=== PATIENT | male | born 1965 | race Caucasian/White ===

== ENCOUNTER 2021-02-19 20:26 | Emergency (ER) | payer MEDICAID ==
[~2021-02-19] VITALS: Ht 172.7 cm; Wt 77.1 kg
[2021-02-19] MEDS ORDERED: IV NORMAL SALINE 1000 ML BAG IV ONE (21:00)
[2021-02-19 21:40] LABS: HEMATOCRIT 38.7 % (36.7-47.1); MEAN CORPUSCULAR HEMOGLOBIN 29.5 uug (23.8-33.4); PLATELET COUNT (AUTO) 395 K/uL (152-348)
[2021-02-19 21:45] LABS: CREATININE 0.8 mg/dL (0.6-1.3); POTASSIUM 3.7 mmol/L (3.5-5.1)
[2021-02-19] MEDS ORDERED: TRANEXAMIC ACID 1,000 MG/10 ML VIAL IR PRN (23:15)
[2021-02-20 00:56] LABS: HEMATOCRIT 36.2 % (36.7-47.1)
--- NOTE | 2021-02-20 01:15 | NUR ---
IV removed. Catheter intact and site benign. Pressure and 4x4 gauze applied to site. No bleeding noted.
[2021-02-20 01:18] VITALS: BP 141/93
--- NOTE | 2021-02-20 01:18 | NUR ---
Patient discharged to home in stable condition. Written and verbal after care instructions given. Patient verbalizes understanding of instructions. Stressed follow up or return to ER for worsening s/s.
== END 2021-02-20 01:19 | disposition home or self-care (01) ==
LOC: ER 20:35
DX: K91.841 Postprocedural hemorrhage of a digestive system organ or structure following other procedure (principal); Z90.81 Acquired absence of spleen; Z82.49 Family history of ischemic heart disease and other diseases of the circulatory system; R03.0 Elevated blood-pressure reading, without diagnosis of hypertension
CPT/HCPCS: 36415; 85018; 85025; 85730; 86850; 86900; 86901; J7030

== ENCOUNTER 2021-04-10 15:31 | Emergency (ER) | payer MEDICAID ==
[~2021-04-10] VITALS: Ht 177.8 cm; Wt 74.8 kg
[2021-04-10] MEDS ORDERED: IBUPROFEN 600 MG TABLET PO ONE (15:45)
[2021-04-10] MEDS ORDERED: IBUPROFEN 600 MG TABLET ONE (15:55)
[2021-04-10 16:01] LABS: *BILIRUBIN,URIN NEGATIVE (NEGATIVE); *BLOOD, URINE 1+ (NEGATIVE); *COLOR,URINE YELLOW (YELLOW); *KETONES,URINE NEGATIVE (NEGATIVE); *UROBILINOGEN,URINE 0.2 E.U./dl (NORMAL); LEUKOCYTE ESTERASE ,URINE NEGATIVE (NEGATIVE); NITRITE, URINE NEGATIVE (NEGATIVE); UGLUCOSE NEGATIVE (NEGATIVE)
[2021-04-10 16:09] LABS: *CLARITY,URINE HAZY (CLEAR)
[2021-04-10 16:10] LABS: BACTERIA,URINE FEW /HPF (NONE SEEN); MUCUS,URINE FEW /LPF (0-FEW); SQUAMOUS EPITHELIAL CELL,UR FEW /HPF (NONE SEEN)
[2021-04-10 16:50] LABS: *AMPHETAMINE, URINE POSITIVE (NEGATIVE); *CANNABINOID, URINE POSITIVE (NEGATIVE); *COCCAINE, URINE NEGATIVE (NEGATIVE); *OPIATE, URINE POSITIVE (NEGATIVE); *PHENCYCLIDINE SCREEN,URINE NEGATIVE (NEGATIVE)
[2021-04-10 16:57] LABS: HEMATOCRIT 37.5 % (36.7-47.1); MEAN CORPUSCULAR HEMOGLOBIN 29.5 uug (23.8-33.4); MEAN CORPUSCULAR VOLUME 87.2 fL (73.0-96.2); PLATELET COUNT (AUTO) 380 K/uL (152-348)
[2021-04-10 17:04] LABS: POTASSIUM 3.6 mmol/L (3.5-5.1)
--- NOTE | 2021-04-10 17:06 | NUR ---
Patient is resting comfortably on gurney with eyes closed, NAD.
--- NOTE | 2021-04-10 17:41 | NUR ---
Patient discharged to home in stable condition with brisk steady gait. Written and verbal after care instructions given. Patient verbalized understanding and compliance of instructions. Stressed follow up with primary doctor or return to ER for worsening s/s.
== END 2021-04-10 17:46 | disposition home or self-care (01) ==
LOC: ER 15:40
DX: R52 Pain, unspecified (principal); R31.9 Hematuria, unspecified; Z20.822 Contact with and (suspected) exposure to COVID-19; F15.10 Other stimulant abuse, uncomplicated; Z90.81 Acquired absence of spleen; I10 Essential (primary) hypertension; F17.290 Nicotine dependence, other tobacco product, uncomplicated
CPT/HCPCS: 36415; 71045; 83605; 85025; 87040; 87400; A4663

== ENCOUNTER 2021-05-02 03:00 | Emergency (ER) | payer MEDICAID ==
[~2021-05-02] VITALS: Ht 175.3 cm; Wt 77.1 kg
--- NOTE | 2021-05-02 03:32 | NUR ---
DR. LEWIS AT BEDSIDE, MSE IN PROGRESS.
[2021-05-02 03:34] LABS: *BILIRUBIN,URIN NEGATIVE (NEGATIVE); *CLARITY,URINE CLEAR (CLEAR); *COLOR,URINE YELLOW (YELLOW); *KETONES,URINE TRACE (NEGATIVE); *UROBILINOGEN,URINE 0.2 E.U./dl (NORMAL); LEUKOCYTE ESTERASE ,URINE NEGATIVE (NEGATIVE); NITRITE, URINE NEGATIVE (NEGATIVE); PH,URINE 5.5 (5.0-8.0); UGLUCOSE NEGATIVE (NEGATIVE)
[2021-05-02 03:46] LABS: *BLOOD, URINE TRACE (NEGATIVE)
[2021-05-02 03:51] LABS: BACTERIA,URINE NONE SEEN /HPF (NONE SEEN); SQUAMOUS EPITHELIAL CELL,UR FEW /HPF (NONE SEEN); WBC,URINE 0-3 /HPF (0-3)
[2021-05-02 03:53] LABS: *AMPHETAMINE, URINE POSITIVE (NEGATIVE); *CANNABINOID, URINE POSITIVE (NEGATIVE); *COCCAINE, URINE NEGATIVE (NEGATIVE); *OPIATE, URINE POSITIVE (NEGATIVE); *PHENCYCLIDINE SCREEN,URINE NEGATIVE (NEGATIVE)
--- NOTE | 2021-05-02 03:57 | NUR ---
XRAY AT BEDSIDE.
[2021-05-02 03:59] LABS: HEMATOCRIT 37.9 % (36.7-47.1); MEAN CORPUSCULAR HEMOGLOBIN 28.5 uug (23.8-33.4); MEAN CORPUSCULAR VOLUME 86.9 fL (73.0-96.2); PLATELET COUNT (AUTO) 425 K/uL (152-348)
[2021-05-02] MEDS ORDERED: KETOROLAC TROMETHAMINE 60 MG INJ IM ONE ×2 (04:00→04:09)
[2021-05-02 04:09] LABS: CREATININE 1.3 mg/dL (0.6-1.3); POTASSIUM 4.2 mmol/L (3.5-5.1)
[2021-05-02] MEDS ORDERED: VANCOMYCIN IV 1,250 MG in IV DEXTROSE 5% 250 ML IV SCH (07:00)
[2021-05-02] MEDS ORDERED: PIPERACILLIN SODIUM/TAZOBACTAM 3.375 G in IV DEXTROSE 5% 50 ML IV SCH (07:00)
--- NOTE | 2021-05-02 07:06 | NUR ---
HANDS OFF REPORT GIVEN TO MORNING SHIFT.
[2021-05-02] MEDS ORDERED: PIPERACILLIN/TAZOBACTAM/D5W 50 ML IV ONE (07:11)
--- NOTE | 2021-05-02 07:50 | NUR ---
PT DECIDED TO LEAVE HOSPITAL ER AMA. DR HERRMANN EXPLAINED TO THE PT ALL RISKS OF LEAVING HOSPITAL AMA. PT VERBALIZED FULL UNDERSTANDING. PT SIGNED AMA FORM AND LEFT HOSPITAL BY TAXI. NO S/S OF DISTRESS AT THAT TIME.
[2021-05-02 07:55] VITALS: BP 135/81
[2021-05-06] MEDS ORDERED: METO50TA16 PO (11:27)
[2021-05-06] MEDS ORDERED: AMLO-212 PO (11:27)
== END 2021-05-02 07:56 | disposition left against medical advice (07) ==
LOC: ER 03:07
DX: M25.461 Effusion, right knee (principal); Z53.29 Procedure and treatment not carried out because of patient's decision for other reasons; F15.10 Other stimulant abuse, uncomplicated; F11.10 Opioid abuse, uncomplicated; Z90.81 Acquired absence of spleen; F17.210 Nicotine dependence, cigarettes, uncomplicated; R03.0 Elevated blood-pressure reading, without diagnosis of hypertension
CPT/HCPCS: 36415; 73560; 80048; 80307; 81001; 82945; 83986; 84155; 84550; 85025; 85651; 87070; 87205; 96365; 96372; 99285; J1885; J2543; A4663

== ENCOUNTER 2021-05-02 16:32 | Inpatient (IN) | payer MEDICAID ==
[~2021-05-02] VITALS: Ht 175.3 cm; Wt 77.1 kg
[2021-05-02] MEDS ORDERED: VANCOMYCIN IV 1,000 MG in IV DEXTROSE 5% 250 ML IV ONE (17:30)
[2021-05-02] MEDS ORDERED: IV NORMAL SALINE 1000 ML BAG IV ONE (17:30)
[2021-05-02] MEDS ORDERED: PIPERACILLIN SODIUM/TAZOBACTAM 3.375 G in IV DEXTROSE 5% 50 ML IV ONE (17:30)
[2021-05-02 17:59] LABS: HEMATOCRIT 35.2 % (36.7-47.1); MEAN CORPUSCULAR VOLUME 87.2 fL (73.0-96.2); PLATELET COUNT (AUTO) 407 K/uL (152-348)
[2021-05-02 18:05] LABS: CREATININE 1.1 mg/dL (0.6-1.3); POTASSIUM 3.8 mmol/L (3.5-5.1)
[2021-05-02 18:11] LABS: BILIRUBIN,DIRECT 0.1 mg/dL (0.0-0.2); BILIRUBIN,TOTAL 0.2 mg/dL (0.2-1.0); TOTAL PROTEIN, SERUM 6.9 g/dL (6.4-8.2)
[2021-05-02] MEDS ORDERED: VANCOMYCIN IV 200 ML ONE (18:11)
[2021-05-02] MEDS ORDERED: PIPERACILLIN/TAZOBACTAM/D5W 50 ML IV ONE (18:11)
[2021-05-02 19:15] LABS: IRON, SERUM 25 ug/dL (50-175)
[2021-05-02 19:51] LABS: NEUTROPHILS % (MANUAL) 0 % (42-75)
[2021-05-02] MEDS ORDERED: ONDANSETRON 4 MG/2 ML VIAL IV PRN (21:15)
[2021-05-02] MEDS ORDERED: ACETAMINOPHEN 325 MG TABLET PO PRN (21:15)
[2021-05-02] MEDS ORDERED: HYDROCODONE/APAP 5-325MG TABLET PO PRN (21:15)
[2021-05-02 22:34] LABS: *BILIRUBIN,URIN NEGATIVE (NEGATIVE); *CLARITY,URINE CLEAR (CLEAR); *COLOR,URINE YELLOW (YELLOW); *KETONES,URINE NEGATIVE (NEGATIVE); *UROBILINOGEN,URINE 0.2 E.U./dl (NORMAL); LEUKOCYTE ESTERASE ,URINE NEGATIVE (NEGATIVE); NITRITE, URINE NEGATIVE (NEGATIVE); UGLUCOSE NEGATIVE (NEGATIVE)
[2021-05-02 22:38] LABS: *BLOOD, URINE TRACE (NEGATIVE)
[2021-05-02 22:40] LABS: BACTERIA,URINE NONE SEEN /HPF (NONE SEEN); RBC,URINE 0-3 /HPF (0-3); SQUAMOUS EPITHELIAL CELL,UR FEW /HPF (NONE SEEN); WBC,URINE 0-3 /HPF (0-3)
[2021-05-03] MEDS ORDERED: PIPERACILLIN SODIUM/TAZOBACTAM 3.375 G in IV DEXTROSE 5% 50 ML IV SCH
[2021-05-03] MEDS ORDERED: DOCUSATE SODIUM 100 MG CAPSULE PO ONE (00:32)
[2021-05-03] MEDS ORDERED: PIPERACILLIN/TAZOBACTAM/D5W 50 ML IV ONE ×2 (00:32→13:28)
[2021-05-03 06:24] LABS: HEMATOCRIT 38.3 % (36.7-47.1); MEAN CORPUSCULAR HEMOGLOBIN 28.8 uug (23.8-33.4); MEAN CORPUSCULAR VOLUME 86.5 fL (73.0-96.2); PLATELET COUNT (AUTO) 443 K/uL (152-348)
[2021-05-03 06:41] LABS: BILIRUBIN,TOTAL 0.6 mg/dL (0.2-1.0); CREATININE 0.8 mg/dL (0.6-1.3); PHOSPHOROUS 1.8 mg/dL (2.5-4.9); POTASSIUM 3.7 mmol/L (3.5-5.1); TOTAL PROTEIN, SERUM 7.3 g/dL (6.4-8.2)
[2021-05-03] MEDS: PIPERACILLIN SODIUM/TAZOBACTAM 3.375 G in IV DEXTROSE 5% 50 ML IV SCH ×3 (06:47→23:39)
[2021-05-03] MEDS: PANTOPRAZOLE SODIUM 40 MG TABLET.DR PO SCH (06:47)
[2021-05-03] MEDS ORDERED: PIPERACILLIN SODIUM/TAZO 3.375 GM VIAL ONE ×2 (06:47→23:28)
[2021-05-03] MEDS ORDERED: PANTOPRAZOLE SODIUM 40 MG TABLET.DR PO ONE (06:48)
[2021-05-03] MEDS ORDERED: VANCOMYCIN IV 1,250 MG in IV DEXTROSE 5% 250 ML IV ONE (08:00)
[2021-05-03] MEDS: ENOXAPARIN SODIUM 40 MG/0.4 ML DISP.SYRIN SQ SCH (09:09)
[2021-05-03] MEDS ORDERED: ENOXAPARIN SODIUM 40 MG/0.4 ML DISP.SYRIN SQ ONE (09:18)
[2021-05-03] MEDS ORDERED: NEUTRA PHOS PACKET PO ONE (16:00)
[2021-05-03] MEDS ORDERED: SODIUM PHOSPHATE MM 15 MMOL in IV NORMAL SALINE 250 ML IV ONE (16:00)
[2021-05-03] MEDS: IV 1/2NS 1000 ML 1,000 ML IV PRN (18:31)
[2021-05-03 20:46] VITALS: BP 154/109
[2021-05-03] MEDS: DOCUSATE SODIUM 100 MG CAPSULE PO SCH (21:00)
[2021-05-03] MEDS ORDERED: DOCUSATE SODIUM 250 MG CAPSULE PO SCH (21:00)
[2021-05-03] MEDS: VANCOMYCIN IV 1,250 MG in IV DEXTROSE 5% 250 ML IV SCH (22:17)
[2021-05-04] MEDS ORDERED: PIPERACILLIN SODIUM/TAZO 3.375 GM VIAL ONE (02:22)
[2021-05-04 04:43] VITALS: BP 161/86
[2021-05-04] MEDS: PIPERACILLIN SODIUM/TAZOBACTAM 3.375 G in IV DEXTROSE 5% 50 ML IV SCH (05:50)
[2021-05-04] MEDS: PANTOPRAZOLE SODIUM 40 MG TABLET.DR PO SCH (05:56)
[2021-05-04 07:39] LABS: CREATININE 0.8 mg/dL (0.6-1.3); PHOSPHOROUS 2.4 mg/dL (2.5-4.9); POTASSIUM 3.3 mmol/L (3.5-5.1)
[2021-05-04] MEDS: VANCOMYCIN IV 1,250 MG in IV DEXTROSE 5% 250 ML IV SCH (08:48)
[2021-05-04] MEDS: ENOXAPARIN SODIUM 40 MG/0.4 ML DISP.SYRIN SQ SCH (11:50)
[2021-05-04] MEDS: IV 1/2NS 1000 ML 1,000 ML IV PRN ×2 (11:53→23:08)
[2021-05-04 12:00] VITALS: BP 180/116
[2021-05-04] MEDS: POTASSIUM CHLORIDE 50 ML IV SCH ×2 (12:26→13:57)
[2021-05-04] MEDS ORDERED: NEUTRA PHOS PACKET PO ONE (15:30)
[2021-05-04 16:00] VITALS: BP 183/113
[2021-05-04] MEDS: LORAZEPAM 0.5 MG TABLET PO PRN (16:12)
[2021-05-04] MEDS: DOCUSATE SODIUM 100 MG CAPSULE PO SCH (20:19)
[2021-05-04 20:57] VITALS: BP 182/115
[2021-05-04] MEDS: AMLODIPINE 5 MG TABLET PO SCH (21:13)
[2021-05-04] MEDS: METOPROLOL TARTRATE 50 MG TABLET PO SCH (21:14)
[2021-05-04] MEDS: VANCOMYCIN IV 1,000 MG in IV DEXTROSE 5% 250 ML IV SCH (22:20)
[2021-05-04] MEDS: hydrALAZINE HCL 25 MG TABLET PO PRN (23:03)
[2021-05-04 23:04] VITALS: BP 181/105
[2021-05-05] MEDS: LORAZEPAM 0.5 MG TABLET PO PRN ×2 (00:20→13:44)
[2021-05-05 00:25] VITALS: BP 152/110
[2021-05-05 04:52] VITALS: BP 103/53
[2021-05-05] MEDS: VANCOMYCIN IV 1,000 MG in IV DEXTROSE 5% 250 ML IV SCH ×2 (05:44→14:01)
[2021-05-05] MEDS: PANTOPRAZOLE SODIUM 40 MG TABLET.DR PO SCH (06:07)
[2021-05-05 08:01] LABS: HEMATOCRIT 41.7 % (36.7-47.1); MEAN CORPUSCULAR HEMOGLOBIN 28.3 uug (23.8-33.4); MEAN CORPUSCULAR VOLUME 84.7 fL (73.0-96.2); PLATELET COUNT (AUTO) 511 K/uL (152-348)
[2021-05-05 08:10] LABS: CREATININE 0.8 mg/dL (0.6-1.3); MAGNESIUM 1.8 mg/dL (1.8-2.4)
[2021-05-05] MEDS: IV 1/2NS 1000 ML 1,000 ML IV PRN (12:14)
[2021-05-05 12:31] VITALS: BP 150/94
[2021-05-05] MEDS: ENOXAPARIN SODIUM 40 MG/0.4 ML DISP.SYRIN SQ SCH (13:43)
[2021-05-05] MEDS: POTASSIUM CHLORIDE 10 MEQ TAB.PRT.SR PO SCH ×2 (13:45→17:49)
[2021-05-05] MEDS: AMLODIPINE 5 MG TABLET PO SCH ×2 (13:56→21:00)
[2021-05-05] MEDS: METOPROLOL TARTRATE 50 MG TABLET PO SCH ×2 (13:58→21:01)
[2021-05-05 16:33] VITALS: BP 156/96
[2021-05-05] MEDS ORDERED: SODIUM PHOSPHATE MM 15 MMOL in IV NORMAL SALINE 250 ML IV ONE (17:00)
[2021-05-05 20:59] VITALS: BP 150/102
[2021-05-05] MEDS: DOCUSATE SODIUM 100 MG CAPSULE PO SCH (20:59)
[2021-05-06] MEDS: hydrALAZINE HCL 25 MG TABLET PO PRN (00:23)
[2021-05-06 04:20] VITALS: BP 149/96
[2021-05-06] MEDS: PANTOPRAZOLE SODIUM 40 MG TABLET.DR PO SCH (06:13)
[2021-05-06 06:56] LABS: HEMATOCRIT 43.6 % (36.7-47.1); PLATELET COUNT (AUTO) 476 K/uL (152-348)
[2021-05-06 07:17] LABS: CREATININE 0.8 mg/dL (0.6-1.3); MAGNESIUM 1.9 mg/dL (1.8-2.4); POTASSIUM 3.4 mmol/L (3.5-5.1)
[2021-05-06 08:26] VITALS: BP 151/101
[2021-05-06] MEDS: METOPROLOL TARTRATE 50 MG TABLET PO SCH (08:26)
[2021-05-06] MEDS: AMLODIPINE 5 MG TABLET PO SCH (08:26)
[2021-05-06] MEDS: ENOXAPARIN SODIUM 40 MG/0.4 ML DISP.SYRIN SQ SCH (08:27)
[2021-05-06] MEDS ORDERED: POTASSIUM CHLORIDE 20 MEQ TAB.PRT.SR PO ONE (09:30)
[2021-05-06] MEDS ORDERED: AMLO-212 PO (11:27)
[2021-05-06] MEDS ORDERED: METO50TA16 PO (11:27)
== END 2021-05-06 12:10 | disposition home or self-care (01) | DRG 351 ==
LOC: ER 16:32 → TRANSITION 21:08 → MEDSURG3 05-03 17:34
PROVIDERS: ADMIT Nurse Practitioner Family; ATTEND Nurse Practitioner Acute Care
DX: M25.461 Effusion, right knee (principal); E44.0 Moderate protein-calorie malnutrition; R78.81 Bacteremia; M25.861 Other specified joint disorders, right knee; D64.9 Anemia, unspecified; M11.20 Other chondrocalcinosis, unspecified site; Z20.822 Contact with and (suspected) exposure to COVID-19; I10 Essential (primary) hypertension; M19.90 Unspecified osteoarthritis, unspecified site; Z90.81 Acquired absence of spleen; F19.10 Other psychoactive substance abuse, uncomplicated; Z72.0 Tobacco use
CPT/HCPCS: 36415; 70030-TC; 73700; 83550; 83605; 83735; 84100; 84550; 85025; 85730; 87040; 87086; A4663; G0378; J1650; J2543; J3370; J3480; J3490; J7030; J7040; J7050; J7060

== ENCOUNTER 2021-06-13 04:07 | Emergency (ER) | payer MEDICAID ==
[~2021-06-13] VITALS: Ht 177.8 cm; Wt 77.1 kg
[~2021-06-13 04:07] MED LIST: AMLO-212 PO; METO50TA16 PO
--- NOTE | 2021-06-13 04:36 | NUR ---
Dr. Roland at bedside for MSE.
--- NOTE | 2021-06-13 06:05 | NUR ---
Pt provided urine sample, sent to lab.
[2021-06-13 06:32] LABS: *BILIRUBIN,URIN NEGATIVE (NEGATIVE); *BLOOD, URINE 2+ (NEGATIVE); *CLARITY,URINE CLEAR (CLEAR); *COLOR,URINE YELLOW (YELLOW); *KETONES,URINE NEGATIVE (NEGATIVE); *UROBILINOGEN,URINE 0.2 E.U./dl (NORMAL); LEUKOCYTE ESTERASE ,URINE NEGATIVE (NEGATIVE); NITRITE, URINE NEGATIVE (NEGATIVE); UGLUCOSE NEGATIVE (NEGATIVE)
[2021-06-13 06:48] LABS: BACTERIA,URINE FEW /HPF (NONE SEEN); SQUAMOUS EPITHELIAL CELL,UR FEW /HPF (NONE SEEN)
--- NOTE | 2021-06-13 06:53 | NUR ---
Patient discharged to home in stable condition. Written and verbal after care instructions given. Patient verbalizes understanding of instructions. Stressed follow up or return to ER for worsening s/s. Patient out of ER with steady gait, no acute signs of distress, VSS, all belongings taken, provided with copies of lab results.
[2021-06-13 06:54] VITALS: BP 112/83
== END 2021-06-13 06:54 | disposition home or self-care (01) ==
LOC: ER 04:09
DX: G89.29 Other chronic pain (principal); M25.561 Pain in right knee; F17.210 Nicotine dependence, cigarettes, uncomplicated; Z79.899 Other long term (current) drug therapy
CPT/HCPCS: A4663

== ENCOUNTER 2021-07-17 23:11 | Emergency (ER) | payer MEDICAID ==
[~2021-07-17] VITALS: Ht 175.3 cm; Wt 77.1 kg
--- NOTE | 2021-07-17 23:15 | NUR ---
PT AMBULATED TO ER C/O RT EYE PAIN X5 DAYS, PT WAS WORKING ON SOMETHING ON THE CEILING, POTENTIAL FOREIGN BODY IN EYE.
--- NOTE | 2021-07-17 23:20 | NUR ---
DR. MARKS D AT BEDSIDE, MSE IN PROGRESS.
[2021-07-17] MEDS ORDERED: FLUORESCEIN SODIUM 1 MG STRIP ONE (23:29)
[2021-07-17] MEDS ORDERED: TETRACAINE HCL 0.5% OPHT DROP 2 ML BOTTLE OP ONE (23:30)
[2021-07-17] MEDS ORDERED: FLUORESCEIN SODIUM 1 MG STRIP OP ONE (23:30)
[2021-07-17] MEDS ORDERED: CIPR2.5D14 RIGHTEYE (23:48)
--- NOTE | 2021-07-17 23:57 | NUR ---
Patient discharged to home in stable condition. Written and verbal after care instructions given. Patient verbalizes understanding of instructions. Stressed follow up or return to ER for worsening s/s. Steady gait, denies any pain/discomfort upon discharge. Picked up by friend.
[2021-07-17 23:58] VITALS: BP 144/87
== END 2021-07-17 23:58 | disposition home or self-care (01) ==
LOC: ER 23:11
DX: T15.01XA Foreign body in cornea, right eye, initial encounter (principal); H16.001 Unspecified corneal ulcer, right eye; S00.251A Superficial foreign body of right eyelid and periocular area, initial encounter; W22.8XXA Striking against or struck by other objects, initial encounter; Y93.H3 Activity, building and construction; Y92.69 Other specified industrial and construction area as the place of occurrence of the external cause; Y99.0 Civilian activity done for income or pay; Z90.81 Acquired absence of spleen; R03.0 Elevated blood-pressure reading, without diagnosis of hypertension
CPT/HCPCS: A4663

== ENCOUNTER 2025-02-22 23:32 | Emergency (ER) | payer MEDICAID, MEDICARE, OTHER ==
[~2025-02-22] VITALS: Ht 175.3 cm; Wt 77.1 kg
[~2025-02-22 23:32] MED LIST changes: +CIPR2.5D14 RIGHTEYE
[2025-02-22 23:37] VITALS: BP 135/75
[2025-02-23 00:24] LABS: PLATELET COUNT (AUTO) 359 K/uL (152-348); RED BLOOD CELL COUNT(AUTO) 4.31 MIL/uL (4.06-5.63); RED CELL DISTRIBUTION WIDTH 15.5 % (12.1-16.2); WHITE BLOOD COUNT (AUTO) 8.9 K/uL (3.6-10.2)
[2025-02-23 00:30] LABS: CREATININE 1.5 mg/dL (0.6-1.3); SODIUM SERUM 139.0 mmol/L (136-145); UREA NITROGEN, BLOOD 34.0 mg/dL (7-18)
[2025-02-23 00:36] LABS: ASPARTATE AMINOTRANSFERASE 13.0 U/L (15-37); TOTAL PROTEIN, SERUM 7.3 g/dL (6.4-8.2)
[2025-02-23] MEDS ORDERED: COLCHICINE 0.6 MG TABLET ONE (02:19)
[2025-02-23] MEDS: COLCHICINE 0.6 MG TABLET PO ONE (02:22)
[2025-02-23 02:27] LABS: TOTAL VOLUME,BODY FLUID 20 mL
[2025-02-23 02:29] LABS: WBC, BODY FLUID 8741 /cu. mm (0-200/cu.mm)
[2025-02-23 02:45] LABS: PROTEIN, BODY FLUID 4.0 G/DL
[2025-02-23 02:47] LABS: PH, BODY FLUID 7.5
[2025-02-23 02:51] VITALS: BP 135/75; TEMP 98; O2SAT 97
[2025-02-23 03:02] LABS: MONOCYTES,BODY FLUID 1 %
== END 2025-02-23 02:52 | disposition home or self-care (01) ==
LOC: ER 23:32
DX: M25.462 Effusion, left knee (principal); R79.89 Other specified abnormal findings of blood chemistry; M17.12 Unilateral primary osteoarthritis, left knee; E83.52 Hypercalcemia; E88.09 Other disorders of plasma-protein metabolism, not elsewhere classified; F17.210 Nicotine dependence, cigarettes, uncomplicated; I10 Essential (primary) hypertension; Z90.81 Acquired absence of spleen
CPT/HCPCS: 36415; 70030-TC; 73560; 84550; 85025; 85730; 86140; 87070; 87205; 89051; A4606; A4663